=== PATIENT | female | born 1975 | race Caucasian/White ===

== ENCOUNTER 2018-08-14 16:31 | Emergency (ER) | payer MEDICAID ==
[~2018-08-14] VITALS: Ht 157.5 cm; Wt 75.9 kg
[~2018-08-14 16:31] MED LIST: IBUP-1542 PO
[2018-08-14 16:46] VITALS: Ht 157.5 cm; Wt 75.9 kg
[2018-08-14] MEDS ORDERED: IBUPROFEN 600 MG TAB PO ONE (19:00)
--- NOTE | 2018-08-14 20:12 | ERD ---
ER Documentation Chief Complaint Chief Complaint left knee pain from trip and fall today. No deformity HPI This patient is a 43-year-old female with no significant past medical history brought in by her family who is assisting with translation from Polish to Spanish with concerns for left knee pain after fall which occurred at 4 PM today. The patient states she accidentally tripped on a single step falling directly onto her anterior left knee. Pain is intermittent and worse with walking. She took no medication for relief of symptoms. She denies any head injury, loss of consciousness, or other symptoms or injuries at this time. ROS All systems reviewed and are negative except as per history of present illness. Medications Home Meds Active Scripts Naproxen* (Naprosyn*) 500 Mg Tablet, 500 MG PO BID PRN for PAIN AND/OR INFLAMMATION, #30 TAB Prov:KEVIN MOON PA-C 08/14/18 Ibuprofen* (Motrin*) 600 Mg Tab, 600 MG PO Q6, #30 TAB Prov:MATT ORNELAS PA-C 01/16/16 Allergies Allergies: Coded Allergies: No Known Allergy (Unverified , 01/16/16) PMhx/Soc Medical and Surgical Hx: pt denies Medical Hx, pt denies Surgical Hx History of Surgery: No Hx Neurological Disorder: No Hx Respiratory Disorders: No Hx Cardiac Disorders: No Hx Psychiatric Problems: No Hx Miscellaneous Medical Probl: No Hx Alcohol Use: No Hx Substance Use: No Hx Tobacco Use: No Smoking Status: Never smoker FmHx Family History: No diabetes Physical Exam Vitals Physical Exam Const: No acute distress Head: Atraumatic Eyes: Normal Conjunctiva ENT: Normal External Ears, Nose and Mouth. Neck: Full range of motion. No meningismus. Resp: No respiratory distress. Skin: No petechiae or rashes Back: No midline or flank tenderness Ext: No cyanosis, or edema. Tenderness to palpation in the left anterior knee with mild soft tissue swelling. Limited range of motion secondary to pain. Unable to complete special test of the knee secondary to pain. Neur: Awake and alert Psych: Normal Mood and Affect Results 24 hrs Current Medications Medications Dose Sig/Leana Start Time Status Last (Trade) Ordered Route PRN Stop Time Admin Dose Reason Admin Ibuprofen 600 mg ONCE ONCE 08/14/18 DC 08/14/18 (Motrin) PO 19:00 19:03 08/14/18 19:01 [place] [id number] [place] [id number] Radiology Main Line: [phone] DIAGNOSTIC IMAGING REPORT Patient: FLOR NEWMAN : 1975 Age: 43 Sex: F MR #: [id number] DOS: 08/14/18 0000 Ordering MD: KEVIN MOON PA-C Location: [facility] Room/Bed: PROCEDURE: Left knee x-ray CLINICAL INDICATION: L knee pain TECHNIQUE: 3 views of the left knee were obtained. COMPARISON: None FINDINGS: No acute fracture is seen. Alignment and mineralization are normal. There are no significant degenerative changes. There is no joint effusion. There is no significant soft tissue swelling. IMPRESSION: Negative left knee. RPTAT:HCLE Physician Rupert Date Time Electronically viewed and signed by Physician Rupert on 08/14/2018 20:21 cE/ CC: KEVIN MOON PA-C [id number] Procedures/MDM 43-year-old female presented to the emergency department complaining of left k nee pain after a fall which occurred at approximately 4 PM today. Patient did have some tenderness palpation of the left anterior knee with limited range of motion secondary to pain. X-ray of the left knee interpreted by the radiologist showed no acute abnormalities. Symptoms are likely secondary to sprain versus strain. Patient required knee immobilizer of the left lower extremity in the case of occult fracture. Splint Assessment: Neurovascularly intact post splint placement with good fit. Patient's extremity symptoms have stabilized while they have been evaluated in the department and are appropriate for outpatient follow up. No evidence of compartment syndrome, neurologic injury, vascular injury, open joint, open fracture, tendon laceration, or foreign body. Patient was advised follow-up with orthopedic physician within the next 24 to 48 hours. Patient was in agreement with the diagnosis, plan, need for follow-up, return precautions. Disclaimer: Inadvertent spelling and grammatical errors are likely due to EHR/dictation software use and do not reflect on the overall quality of patient care. Also, please note that the electronic time recorded on this note does not necessarily reflect the actual time of the patient encounter. Departure Diagnosis: Primary Impression: Knee injury Encounter type: initial encounter Laterality: left Qualified Codes: S89.92XA - Unspecified injury of left lower leg, initial encounter Condition: Fair Additional Instructions: Muchas napoleon por [facility] para carrillo servicio. Esperamos que en carrillo visita a la skye de emergencia carrillo problema medico haya sido solucionado y que se sienta mucho mejor. Para estar seguros que carrillo mejoria sigue en proceso, le pedimos el favor de hacer winter brenda de seguimiento medico con carrillo doctor primario en los proximos 2-4 hurd. Lleve con usted estos documentos y las medicinas recetadas. Si thiago sintomas empeoran, NO SE ESPERE, por favor regrese a skye de emergencia INMEDIATAMENTE. En silvia que usted no tenga un mdico de atencin primaria: Llame al mdico o clnica comunitaria de referencia que aparece abajo eulalia las horas de consultorio para hacer winter brenda para que le vean. CLINICAS: [facility] [phone] [facility] [phone] [facility] [phone] [facility] [phone] [facility] [phone] [address] [facility]. [phone] KEVIN HAAS PA-C Aug 14, 2018 20:12
[2018-08-14] MEDS ORDERED: NAPR-985 PO (20:43)
== END 2018-08-14 21:08 | disposition home or self-care (01) ==
LOC: FTE 16:31
DX: W01.0XXA Fall on same level from slipping, tripping and stumbling without subsequent striking against object, initial encounter (principal); Y92.9 Unspecified place or not applicable
CPT/HCPCS: 73562; Z7502; Z7610